=== PATIENT | male | born 1935 | race Two or more races ===

== ENCOUNTER 2018-07-21 12:54 | Inpatient (IN) | payer MEDICARE, OTHER ==
[~2018-07-21] VITALS: Ht 165.1 cm; Wt 68.0 kg
--- NOTE | 2018-07-21 13:00 | NUR ---
BIB TRANSPORTER FROM [facility] DUE TO INCREASING CONFUSION AND AGGRESSIVE BEHAVIOR. PT IS AWAKE AND ALERT,. NOT IN DISTRESS
[2018-07-21 14:42] LABS: BASOPHILS # (AUTO) 0.1 /CMM (0.0-0.2); BASOPHILS % (AUTO) 0.7 % (0.0-2.0); HEMATOCRIT 43 % (39-51); HEMOGLOBIN 14.5 g/dL (13.5-17.5); LYMPHOCYTES % (AUTO) 24.8 % (20.0-44.0); MEAN CORPUSCULAR HGB CONC 33 g/dl (31.0-36.0); MEAN CORPUSCULAR VOLUME 94 fL (80-96); MONOCYTES # (AUTO) 0.4 /CMM (0.1-1.30); MONOCYTES % (AUTO) 5.6 % (2.0-12.0); NEUTROPHILS # (AUTO) 5.3 /CMM (1.8-8.9); NEUTROPHILS % (AUTO) 65.9 % (43.0-81.0); RDW COEFFICIENT OF VARIATION 13.2 (11.5-15.0); RED BLOOD CELL COUNT(AUTO) 4.63 MIL/uL (4.5-6.0)
[2018-07-21 14:59] LABS: CALCIUM, SERUM 8.9 mg/dL (8.5-10.1); CARBON DIOXIDE 28 mmol/L (21-32); CHLORIDE 103 mmol/L (98-107); CREATININE 0.7 mg/dL (0.6-1.3); GLUCOSE 108 mg/dL (74-106); POTASSIUM 3.9 mmol/L (3.5-5.1); SODIUM SERUM 140 mmol/L (136-145); UREA NITROGEN, BLOOD 13 mg/dL (7-18)
[2018-07-21 15:05] LABS: ALANINE AMINOTRANSFERASE 26 U/L (12-78); ALBUMIN 3.5 g/dL (3.4-5.0); ALCOHOL, BLOOD < 3 mg/dL (0-0); ALKALINE PHOSPHATASE 91 U/L (46-116); ASPARTATE AMINOTRANSFERASE 27 U/L (15-37); BILIRUBIN,DIRECT 0.1 mg/dL (0.0-0.2); BILIRUBIN,TOTAL 0.6 mg/dL (0.2-1.0); TOTAL PROTEIN, SERUM 7.2 g/dL (6.4-8.2)
[2018-07-21 15:06] LABS: ACETAMINOPHEN < 2 ug/ml (10-30); SALICYLATE < 2.8 mg/dL (2.8-20.0)
[2018-07-21 15:15] LABS: PLATELET COUNT (AUTO) 115 /CMM (150-450)
[2018-07-21] MEDS ORDERED: LORAZEPAM 1 MG TABLET PO ONE (16:00)
[2018-07-21] MEDS ORDERED: LORAZEPAM 1 MG TABLET ONE (16:09)
[2018-07-21 17:23] LABS: APPEARANCE,URINE Slightly Cloudy (CLEAR); BILIRUBIN,URINE Negative (NEGATIVE); BLOOD, URINE Trace-intact Ery/uL (NEGATIVE); COLOR,URINE Yellow (YELLOW); KETONES,URINE Negative (NEGATIVE); LEUKOCYTE ESTERASE ,URINE Negative (NEGATIVE); NITRITE, URINE Negative (NEGATIVE); PROTEIN,URINE Negative (NEGATIVE); UGLUCOSE Negative (NEGATIVE); UROBILINOGEN,URINE 0.2 EU/dL (0.2)
--- NOTE | 2018-07-21 18:04 | NUR ---
Patient is resting comfortably in bed with eyes closed. Easily aroused. VSS
[2018-07-21 18:09] LABS: BACTERIA,URINE Few /HPF (None Seen); MUCUS,URINE Few /LPF (None Seen); SQUAMOUS EPITHELIAL CELL,UR Few /HPF (None Seen); URINE AMORPHOUS PHOSPHATES Few /HPF (None Seen); WBC,URINE 0-2 /HPF (0-3)
--- NOTE | 2018-07-21 20:14 | NUR ---
REPORT GIVEN TO NATALIE OLVERA FOR SHO.
[2018-07-21] MEDS ORDERED: ACETAMINOPHEN 325 MG TABLET PO PRN (21:00)
[2018-07-21] MEDS ORDERED: MAG HYDROX/AL HYDROX/SIMETH 30 ML UDC PO PRN (21:00)
[2018-07-21] MEDS ORDERED: MAGNESIUM HYDROXIDE 30 ML UDC PO PRN (21:00)
[2018-07-21] MEDS ORDERED: DOCU100C36 PO (21:11)
[2018-07-21] MEDS ORDERED: HYDR-552 PO (21:13)
[2018-07-21] MEDS ORDERED: AMLO5TAB7 PO (21:14)
[2018-07-21] MEDS ORDERED: FOLI1TAB16 PO (21:15)
[2018-07-21] MEDS ORDERED: MULT1TAB73 PO (21:17)
[2018-07-21] MEDS ORDERED: SENN-167 PO (21:18)
[2018-07-21] MEDS ORDERED: DIVA500T2 PO ×2 (21:21→21:23)
--- NOTE | 2018-07-21 22:00 | NUR ---
ADMITTED THIS 83 YEARS OLD MALE FROM [facility] PATIENT WAS PLACE ON [address] DUE TO PSYCHOSIS,NOS, INCREASED AGITATIONS AND AGGRESSIVE BEHAVIOR PATIENT IS CALM AT THIS TIME, DENIES ANY PAIN OR DISCOMFORT AT THIS TIME ON ROOM AIR, VITAL SIGN STABLE VERY CONFUSED, SKIN ASSESSMENT IS DONE WITH HELP OF ALFREDA ARROYO NO SKIN BREAKDOWN NOTED, SKIN INTACT PATENT NO REDNESS NOTED PATIENT REFUSED TO SIGN THE CONSENT, ADVISEMENT SERVE TO THE PATIENT WITH HOSPITAL HANDBOOK WILL CONTINUES TO MONITOR THE PATIENT FOR SAFETY AND FALL
[2018-07-21] MEDS ORDERED: HYDROCODONE/APAP 5/325MG 1 EACH TABLET PO PRN (22:30)
[2018-07-21] MEDS: TEMAZEPAM 7.5 MG CAPSULE PO PRN (22:57)
[2018-07-22 08:00] VITALS: BP 128/66
[2018-07-22] MEDS: MULTIVITAMINS,THERAGRAN 1 UDTAB TABLET PO SCH (09:31)
[2018-07-22] MEDS: DOCUSATE SODIUM 100 MG CAPSULE PO SCH ×2 (09:31→16:35)
[2018-07-22] MEDS: AMLODIPINE BESYLATE 5 MG TABLET PO SCH (09:31)
[2018-07-22] MEDS: FOLIC ACID 1 MG TABLET PO SCH (09:31)
--- NOTE | 2018-07-22 14:47 | NUR ---
SARAY spoke with pts funmilayo in law Stefan [phone] who stated he and pts son Heron have conservatorship over pt. SARAY asked Stefan to fax over conservatorship documentation to place in pts chart. Addendum: 07/22/18 at 1455 by ALEX SO Son in law stated pts funmilayo Shelby is only available after 6pm Mon-Fri.
--- NOTE | 2018-07-22 15:46 | NUR ---
INITIAL DISCHARGE PLAN: Patient currently resides at [facility] Address: [address], [place] [address] . SW confirmed with Yamila cdl program coordinator at [facility] who stated pt will be returning to facility when stable for discharge. SW will help form a safe and proper discharge in collaboration with .
[2018-07-22 16:00] VITALS: BP 144/75
[2018-07-22] MEDS: QUETIAPINE FUMARATE 25 MG TABLET PO SCH (16:35)
[2018-07-22 20:42] VITALS: BP 129/84
[2018-07-22] MEDS: DIVALPROEX SODIUM 125 MG CAP.SPRINK PO SCH (21:19)
[2018-07-22] MEDS: LORAZEPAM 0.5 MG TABLET PO PRN (22:01)
[2018-07-22] MEDS: SENNOSIDES 8.6 MG TABLET PO SCH (23:57)
[2018-07-23] MEDS: TEMAZEPAM 7.5 MG CAPSULE PO PRN ×2 (00:49→22:39)
[2018-07-23 07:13] LABS: BASOPHILS % (AUTO) 0.3 % (0.0-2.0); EOSINOPHILS % (AUTO) 1.6 % (0.0-6.0); HEMATOCRIT 39 % (39-51); HEMOGLOBIN 13.1 g/dL (13.5-17.5); LYMPHOCYTES % (AUTO) 11.6 % (20.0-44.0); MEAN CORPUSCULAR HGB CONC 34 g/dl (31.0-36.0); MEAN CORPUSCULAR VOLUME 96 fL (80-96); MONOCYTES # (AUTO) 0.8 /CMM (0.1-1.30); MONOCYTES % (AUTO) 9.3 % (2.0-12.0); NEUTROPHILS # (AUTO) 6.5 /CMM (1.8-8.9); NEUTROPHILS % (AUTO) 77.2 % (43.0-81.0); PLATELET COUNT (AUTO) 181 /CMM (150-450); RED BLOOD CELL COUNT(AUTO) 4.07 MIL/uL (4.5-6.0); WHITE BLOOD COUNT (AUTO) 8.4 K/uL (4.3-11.0)
[2018-07-23 07:18] LABS: CHOLESTEROL 130 mg/dL (<200); HDL CHOLESTEROL 56 mg/dL (40-60); LDL 84 mg/dL (0-99); TRIGLYCERIDES 35 mg/dL (30-150)
[2018-07-23 07:20] LABS: ALANINE AMINOTRANSFERASE 26 U/L (12-78); ALBUMIN 3.3 g/dL (3.4-5.0); ALKALINE PHOSPHATASE 79 U/L (46-116); ASPARTATE AMINOTRANSFERASE 21 U/L (15-37); BILIRUBIN,TOTAL 0.9 mg/dL (0.2-1.0); CALCIUM, SERUM 8.8 mg/dL (8.5-10.1); CARBON DIOXIDE 27 mmol/L (21-32); CHLORIDE 104 mmol/L (98-107); CREATININE 0.8 mg/dL (0.6-1.3); GLUCOSE 92 mg/dL (74-106); POTASSIUM 3.7 mmol/L (3.5-5.1); SODIUM SERUM 140 mmol/L (136-145); TOTAL PROTEIN, SERUM 6.6 g/dL (6.4-8.2); UREA NITROGEN, BLOOD 17 mg/dL (7-18)
[2018-07-23 08:00] VITALS: BP 118/50
[2018-07-23] MEDS: FOLIC ACID 1 MG TABLET PO SCH (09:10)
[2018-07-23] MEDS: MULTIVITAMINS,THERAGRAN 1 UDTAB TABLET PO SCH (09:10)
[2018-07-23] MEDS: DOCUSATE SODIUM 100 MG CAPSULE PO SCH ×2 (09:10→17:46)
[2018-07-23] MEDS: QUETIAPINE FUMARATE 25 MG TABLET PO SCH ×3 (09:10→17:46)
[2018-07-23] MEDS: AMLODIPINE BESYLATE 5 MG TABLET PO SCH (09:10)
[2018-07-23] MEDS: DIVALPROEX SODIUM 125 MG CAP.SPRINK PO SCH ×2 (09:14→21:11)
[2018-07-23 17:11] VITALS: BP 148/83
[2018-07-23 20:07] VITALS: BP 112/63
[2018-07-23] MEDS: LORAZEPAM 0.5 MG TABLET PO PRN (20:20)
[2018-07-23] MEDS: SENNOSIDES 8.6 MG TABLET PO SCH (21:13)
[2018-07-24 08:00] VITALS: BP 140/62
[2018-07-24] MEDS: QUETIAPINE FUMARATE 25 MG TABLET PO SCH ×3 (09:50→16:33)
[2018-07-24] MEDS: FOLIC ACID 1 MG TABLET PO SCH (09:50)
[2018-07-24] MEDS: AMLODIPINE BESYLATE 5 MG TABLET PO SCH (09:50)
[2018-07-24] MEDS: MULTIVITAMINS,THERAGRAN 1 UDTAB TABLET PO SCH (09:50)
[2018-07-24] MEDS: DIVALPROEX SODIUM 125 MG CAP.SPRINK PO SCH ×2 (09:50→20:59)
[2018-07-24] MEDS: DOCUSATE SODIUM 100 MG CAPSULE PO SCH ×2 (09:50→16:33)
[2018-07-24 16:00] VITALS: BP 126/79
[2018-07-24 20:00] VITALS: BP 128/63
[2018-07-24] MEDS: TEMAZEPAM 7.5 MG CAPSULE PO PRN (20:59)
[2018-07-24] MEDS: SENNOSIDES 8.6 MG TABLET PO SCH (20:59)
[2018-07-25 08:55] VITALS: BP 130/75
[2018-07-25] MEDS: DIVALPROEX SODIUM 125 MG CAP.SPRINK PO SCH ×2 (09:59→21:35)
[2018-07-25] MEDS: DOCUSATE SODIUM 100 MG CAPSULE PO SCH ×2 (09:59→16:49)
[2018-07-25] MEDS: AMLODIPINE BESYLATE 5 MG TABLET PO SCH (09:59)
[2018-07-25] MEDS: QUETIAPINE FUMARATE 25 MG TABLET PO SCH ×3 (09:59→16:49)
[2018-07-25] MEDS: MULTIVITAMINS,THERAGRAN 1 UDTAB TABLET PO SCH (09:59)
[2018-07-25] MEDS: FOLIC ACID 1 MG TABLET PO SCH (09:59)
[2018-07-25 16:00] VITALS: BP 125/73
[2018-07-25 20:00] VITALS: BP 112/92
[2018-07-25] MEDS: SENNOSIDES 8.6 MG TABLET PO SCH (21:35)
[2018-07-25] MEDS: TEMAZEPAM 7.5 MG CAPSULE PO PRN (21:35)
[2018-07-26 08:00] VITALS: BP 142/73
[2018-07-26] MEDS: MULTIVITAMINS,THERAGRAN 1 UDTAB TABLET PO SCH (09:02)
[2018-07-26] MEDS: AMLODIPINE BESYLATE 5 MG TABLET PO SCH (09:03)
[2018-07-26] MEDS: DIVALPROEX SODIUM 125 MG CAP.SPRINK PO SCH ×2 (09:03→21:45)
[2018-07-26] MEDS: FOLIC ACID 1 MG TABLET PO SCH (09:03)
[2018-07-26] MEDS: QUETIAPINE FUMARATE 25 MG TABLET PO SCH ×3 (09:03→16:11)
[2018-07-26] MEDS: DOCUSATE SODIUM 100 MG CAPSULE PO SCH ×2 (09:03→16:11)
[2018-07-26 16:01] VITALS: BP 113/57
[2018-07-26 20:00] VITALS: BP 114/56
[2018-07-26] MEDS: SENNOSIDES 8.6 MG TABLET PO SCH (21:45)
[2018-07-26] MEDS: TEMAZEPAM 7.5 MG CAPSULE PO PRN (21:49)
[2018-07-27 08:00] VITALS: BP 128/66
[2018-07-27] MEDS: QUETIAPINE FUMARATE 25 MG TABLET PO SCH ×3 (08:49→17:08)
[2018-07-27] MEDS: DOCUSATE SODIUM 100 MG CAPSULE PO SCH ×2 (08:49→17:08)
[2018-07-27] MEDS: AMLODIPINE BESYLATE 5 MG TABLET PO SCH (08:50)
[2018-07-27] MEDS: MULTIVITAMINS,THERAGRAN 1 UDTAB TABLET PO SCH (08:50)
[2018-07-27] MEDS: FOLIC ACID 1 MG TABLET PO SCH (08:51)
[2018-07-27] MEDS: DIVALPROEX SODIUM 125 MG CAP.SPRINK PO SCH ×2 (08:51→21:58)
[2018-07-27 16:00] VITALS: BP 115/59
--- NOTE | 2018-07-27 19:50 | NUR ---
GPS RN NOTE: PATIENT UP IN DARNELL-CHAIR, IN TV ROOM, NO ACUTE DISTRESS NOTED. BREATHING EVEN AND UNLABORED, NO SOB NOTED. PATIENT CALM AT THIS TIME. WILL CONTINUE TO MONITOR.
[2018-07-27 20:02] VITALS: BP 129/55
[2018-07-27] MEDS: SENNOSIDES 8.6 MG TABLET PO SCH (21:58)
--- NOTE | 2018-07-28 06:40 | NUR ---
GPS RN NOTE: PATIENT RESTING IN BED, NO ACUTE DISTRESS NOTED. BREATHING EVEN AND UNLABORED, NO SOB NOTED. PATIENT CALM THROUGHOUT SHIFT. NO S/S OF HYPER/HYPOGLYCEMIA NOTED. SLEPT AT LEAST 6.5 HOURS. WILL ENDORSE TO DAY NURSE TO CONTINUE WITH PLAN OF CARE.
[2018-07-28 08:00] VITALS: BP 128/58
[2018-07-28] MEDS: DOCUSATE SODIUM 100 MG CAPSULE PO SCH ×2 (08:45→18:13)
[2018-07-28] MEDS: QUETIAPINE FUMARATE 25 MG TABLET PO SCH ×3 (08:45→18:13)
[2018-07-28] MEDS: DIVALPROEX SODIUM 125 MG CAP.SPRINK PO SCH ×2 (08:45→21:41)
[2018-07-28] MEDS: FOLIC ACID 1 MG TABLET PO SCH (08:46)
[2018-07-28] MEDS: AMLODIPINE BESYLATE 5 MG TABLET PO SCH (08:46)
[2018-07-28] MEDS: MULTIVITAMINS,THERAGRAN 1 UDTAB TABLET PO SCH (08:46)
[2018-07-28 16:00] VITALS: BP 98/66
--- NOTE | 2018-07-28 19:30 | NUR ---
RECEIVED PATIENT IN GERICHAIR IN DINING ROOM. AO X 1, RESPONSIVE TO VOICE AND TOUCH. NO ACUTE DISTRESS NOTED. NO SIGNS OF PAIN NOTED AT THIS TIME. SAFETY REMINDERS GIVEN. ROOM HAS LOW BED WITH BILATERAL UPPER SIDE RAILS UP. CALL ARCHULETA WITHIN EASY REACH. WILL CONTINUE TO MONITOR.
[2018-07-28 19:56] VITALS: BP 107/56
[2018-07-28 20:00] VITALS: BP 107/56
[2018-07-28] MEDS: SENNOSIDES 8.6 MG TABLET PO SCH (21:41)
--- NOTE | 2018-07-29 06:26 | NUR ---
PATIENT ASLEEP IN BED, EASILY AROUSABLE. RESPIRATIONS EVEN. NO SIGNS OF PAIN NOTED. DUE MEDS GIVEN WITH NO ASE NOTED. NEEDS ATTENDED. SAFETY PRECAUTIONS AND COMFORT MEASURES IN PLACE. WILL GIVE REPORT TO DAY SHIFT FOR CONTINUITY OF CARE.
[2018-07-29 08:00] VITALS: BP 113/54
[2018-07-29] MEDS: FOLIC ACID 1 MG TABLET PO SCH (08:45)
[2018-07-29] MEDS: QUETIAPINE FUMARATE 25 MG TABLET PO SCH ×3 (08:45→16:16)
[2018-07-29] MEDS: AMLODIPINE BESYLATE 5 MG TABLET PO SCH (08:45)
[2018-07-29] MEDS: MULTIVITAMINS,THERAGRAN 1 UDTAB TABLET PO SCH (08:45)
[2018-07-29] MEDS: DIVALPROEX SODIUM 125 MG CAP.SPRINK PO SCH ×2 (08:45→21:23)
[2018-07-29] MEDS: DOCUSATE SODIUM 100 MG CAPSULE PO SCH ×2 (08:45→16:16)
--- NOTE | 2018-07-29 09:34 | NUR ---
SW contacted [facility] Address: [address], [place] [address] and spoke with Yamila engineering coordinator to arrange transportation. Facility will be picking pt up at 3:30pm via facility vehicle and transporting back to facility.
--- NOTE | 2018-07-29 09:36 | NUR ---
SW left pts son in law Stefan [phone] a voicemail informing him of pts discharge tomorrow 07/30/18 to [facility].
[2018-07-29 16:00] VITALS: BP 128/66
[2018-07-29] MEDS: LORAZEPAM 0.5 MG TABLET PO PRN (16:16)
--- NOTE | 2018-07-29 16:20 | NUR ---
GPS/RN PATIENT IS EXTREMELY AGITATED, ADMINISTERED ATIVAN 0.5 MG WILL CONTINUE TO MONITOR.
[2018-07-29 20:26] VITALS: BP 127/61
[2018-07-29] MEDS: SENNOSIDES 8.6 MG TABLET PO SCH (21:22)
[2018-07-29] MEDS: TEMAZEPAM 7.5 MG CAPSULE PO PRN (22:15)
[2018-07-30] MEDS: LORAZEPAM 0.5 MG TABLET PO PRN (04:39)
[2018-07-30 08:00] VITALS: BP 127/68
[2018-07-30] MEDS: DOCUSATE SODIUM 100 MG CAPSULE PO SCH ×2 (09:06→16:52)
[2018-07-30] MEDS: AMLODIPINE BESYLATE 5 MG TABLET PO SCH (09:06)
[2018-07-30] MEDS: MULTIVITAMINS,THERAGRAN 1 UDTAB TABLET PO SCH (09:06)
[2018-07-30] MEDS: QUETIAPINE FUMARATE 25 MG TABLET PO SCH ×3 (09:06→16:52)
[2018-07-30] MEDS: FOLIC ACID 1 MG TABLET PO SCH (09:06)
[2018-07-30] MEDS: DIVALPROEX SODIUM 125 MG CAP.SPRINK PO SCH (09:06)
[2018-07-30 16:00] VITALS: BP 151/92
--- NOTE | 2018-07-30 16:11 | NUR ---
DISCHARGE NOTE: Pt being discharged at 5:00pm to [facility]) [address] [place] [address] via private vehicle by facility. Barb home coordinator, . Pts son in law Stefan [phone] has been notified. Pts mood is pleasant with congruent affect, pt denies suicidal/homicidal ideations and denies visual/auditory hallucinations. Pt will be under the care of Art Critic: Dr. Ernst Antoine [address] [place] [address] [id number], [place], [place] [id number] [phone] and Psychiatrist: Dr. Angelica Patricio [address] [place] [address] [address] [id number] [phone]. The multidisciplinary exitcare form was done, printed, signed, and given to the patient.
--- NOTE | 2018-07-30 18:39 | NUR ---
GPS/RN-NOTES PATIENT WAS DISCHARGE TO [facility] TODAY, DR. CHIANG AND DR. SANCHEZ AWARE AND AGREES OF PATIENT DISCHARGE WITH ORDERS.REPORT WAS GIVEN TO JESUS MANUEL( SALES TRAINING MANAGER). PATIENT DID NOT VERBALIZE SI/HI /DENIES VISUAL/AUDITORY HALLUCINATIONS AT THE TIME OF DISCHRGE.EFFICIENCY MINER BLASTING TISHA CHACON-INLAW OF THE PATIENT AWARE OF THE DISCHARGE. PATIENT WAS [employer]IGH[employer] BY [facility] ( FACILITY TRANSPORTATION). PATIENT LEFT THE UNIT IN STABLE CONDITION WITH ALL HIS BELONGINGS. PATIENT WAS WHEELED BY ONE BENEFITS MANAGER STAFF IN THE LOBBY FOR SAFETY.
== END 2018-07-30 18:30 | DRG 885 ==
LOC: ER 12:54 → GPS 20:12
PROVIDERS: ADMIT Psychiatry & Neurology Psychiatry; ATTEND Student in an Organized Health Care Education/Training Program
DX: F29 Unspecified psychosis not due to a substance or known physiological condition (principal); G93.41 Metabolic encephalopathy; F02.81 Dementia in other diseases classified elsewhere, unspecified severity, with behavioral disturbance; D68.59 Other primary thrombophilia; D69.6 Thrombocytopenia, unspecified; G30.9 Alzheimer's disease, unspecified; M19.90 Unspecified osteoarthritis, unspecified site; I10 Essential (primary) hypertension; N40.0 Benign prostatic hyperplasia without lower urinary tract symptoms; D50.9 Iron deficiency anemia, unspecified; F41.9 Anxiety disorder, unspecified; F32.9 Major depressive disorder, single episode, unspecified; G89.29 Other chronic pain; F39 Unspecified mood [affective] disorder; Z73.6 Limitation of activities due to disability; R82.998 Other abnormal findings in urine
CPT/HCPCS: 36415; 71045-TC; 80048-TC; 80053-TC; 80061-TC; 80076-TC; 80164-TC; 80305; 81000-TC; 85025-TC; 87081-TC; A4606; G0480; Z7610